=== PATIENT | male | born 1960 | race Caucasian/White ===

== ENCOUNTER 2021-02-05 15:21 | Inpatient (IN) ==
[2021-02-05] MEDS ORDERED: SODIUM CHLORIDE 0.9% 1000ML 1,000 ML IV SCH (15:45)
--- NOTE | 2021-02-05 15:52 | Emergency Department Note ---
History of Present Illness General Chief complaint: Shortness of Breath/Dyspnea Stated complaint: COVID POS 01/27/21 - MONOCLONAL ON Time Seen by Provider: 02/05/21 15:29 History of Present Illness 60-year-old male presents to the ED with a chief complaint of generalized weakness, poor appetite, unsteadiness and decreased energy. He also feels like he might be dehydrated due to to decreased p.o. intake. The patient states that he started having Covid symptoms on 27 January mainly with a fever. He was tested on the and was positive for Covid. He had monoclonal antibodies on the , 2 days ago. The patient was brought here by his daughter for evaluation. She is a physician bookkeeping assistant in pediatrics in [place]. The patient has no additional complaints at this time. Home Medications Medication Instructions Recorded Confirmed Type allopurinol 100 mg tablet 100 mg PO DAILY 02/05/21 02/05/21 History allopurinol 300 mg tablet 300 mg PO DAILY 02/05/21 02/05/21 History azithromycin 500 mg tablet 500 mg PO DAILY 5 Days #5 tab 02/05/21 Rx (Zithromax) losartan 100 mg tablet 50 mg PO DAILY 02/05/21 02/05/21 History Allergies Allergy/AdvReac Type Severity Reaction Status Date / Time No Known Allergies Allergy Verified 02/05/21 16:34 Past Med/Surg History Social History Smoking Status: Never smoker Feels Safe at Home: Yes Review of Systems A total of 10 systems reviewed and were otherwise negative Physical Exam Vital Signs Vital Signs - 24 hr 02/05/21 15:23 02/05/21 16:01 02/05/21 16:12 Temperature 35.7 C L Temperature Source Temporal Artery Scan Pulse Rate 80 75 Pulse Rate [Left Finger] Pulse Rate from SpO2 Sensor 74 Pulse Rhythm [Left Finger] Pulse Strength [Left Finger] Respiratory Rate 24 38 H Respiratory Effort / Characteristics Non-Labored Spontaneous Respiratory Depth Normal Respiratory Pattern Regular Regular Blood Pressure 129/83 Blood Pressure [Right Radial Artery] Blood Pressure Mean 98 Blood Pressure Mean [Right Radial Artery] Blood Pressure Position [Right Radial Artery] Pulse Oximetry 91 92 Oxygen Delivery Method Room Air Room Air Sepsis Recent Fever Within 48 Hours Yes Sepsis New/Unexplained Change in Mental Status No Sepsis Action Taken by Nursing No Action Required Pulse Oximetry Post Tiitration 02/05/21 16:20 02/05/21 16:30 02/05/21 16:56 Temperature Temperature Source Pulse Rate 76 68 Pulse Rate [Left Finger] 68 Pulse Rate from SpO2 Sensor 77 69 Pulse Rhythm [Left Finger] Regular Pulse Strength [Left Finger] Normal Respiratory Rate 36 H 31 H 14 Respiratory Effort / Characteristics Non-Labored Respiratory Depth Normal Respiratory Pattern Regular Blood Pressure 134/93 Blood Pressure [Right Radial Artery] 134/93 Blood Pressure Mean 106 Blood Pressure Mean [Right Radial Artery] 106 Blood Pressure Position [Right Radial Artery] Lying Pulse Oximetry 93 95 94 Oxygen Delivery Method Room Air Sepsis Recent Fever Within 48 Hours Sepsis New/Unexplained Change in Mental Status Sepsis Action Taken by Nursing Pulse Oximetry Post Tiitration 94 02/05/21 17:00 02/05/21 17:10 02/05/21 17:20 Temperature Temperature Source Pulse Rate 67 68 67 Pulse Rate [Left Finger] Pulse Rate from SpO2 Sensor 68 67 Pulse Rhythm [Left Finger] Pulse Strength [Left Finger] Respiratory Rate 27 H 32 H 28 H Respiratory Effort / Characteristics Respiratory Depth Respiratory Pattern Blood Pressure 157/95 H Blood Pressure [Right Radial Artery] Blood Pressure Mean 115 Blood Pressure Mean [Right Radial Artery] Blood Pressure Position [Right Radial Artery] Pulse Oximetry 95 94 Oxygen Delivery Method Sepsis Recent Fever Within 48 Hours Sepsis New/Unexplained Change in Mental Status Sepsis Action Taken by Nursing Pulse Oximetry Post Tiitration 02/05/21 17:30 02/05/21 17:40 02/05/21 17:50 Temperature Temperature Source Pulse Rate 65 69 67 Pulse Rate [Left Finger] Pulse Rate from SpO2 Sensor 66 69 67 Pulse Rhythm [Left Finger] Pulse Strength [Left Finger] Respiratory Rate 33 H 34 H 39 H Respiratory Effort / Characteristics Respiratory Depth Respiratory Pattern Blood Pressure 147/86 H Blood Pressure [Right Radial Artery] Blood Pressure Mean 106 Blood Pressure Mean [Right Radial Artery] Blood Pressure Position [Right Radial Artery] Pulse Oximetry 95 93 94 Oxygen Delivery Method Sepsis Recent Fever Within 48 Hours Sepsis New/Unexplained Change in Mental Status Sepsis Action Taken by Nursing Pulse Oximetry Post Tiitration 02/05/21 18:00 Temperature Temperature Source Pulse Rate 67 Pulse Rate [Left Finger] Pulse Rate from SpO2 Sensor 67 Pulse Rhythm [Left Finger] Pulse Strength [Left Finger] Respiratory Rate 35 H Respiratory Effort / Characteristics Respiratory Depth Respiratory Pattern Blood Pressure 130/86 Blood Pressure [Right Radial Artery] Blood Pressure Mean 100 Blood Pressure Mean [Right Radial Artery] Blood Pressure Position [Right Radial Artery] Pulse Oximetry 95 Oxygen Delivery Method Sepsis Recent Fever Within 48 Hours Sepsis New/Unexplained Change in Mental Status Sepsis Action Taken by Nursing Pulse Oximetry Post Tiitration CONSTITUTIONAL/VITAL SIGNS: Reviewed / noted above. GENERAL: Non-toxic in appearance. Generalized weakness. INTEGUMENTARY: Warm, dry, and [place]. HEAD: Normocephalic. EYES: without scleral icterus or trauma. ENT/OROPHARYNX: clear and moist. LYMPHADENOPATHY/NECK: Is supple without lymphadenopathy or meningismus. RESPIRATORY: Clear to auscultation bilaterally. Minimal increased work of breathing. CARDIOVASCULAR: Regular rate and rhythm. GI/ABDOMEN: Soft and nontender. No organomegaly or pulsatile mass. EXTREMITIES: Warm and well perfused. BACK: No CVA tenderness. NEUROLOGICAL: Intact without focal deficits. PSYCHIATRIC: normal affect. MUSCULOSKELETAL: Normally developed with good muscle tone. The patient did ambulate about the room and his pulse ox did not drop below 90%. TRIAGE NURSING DOCUMENTATION REVIEWED. Course Administered Medications Discontinued Medications Sodium Chloride (Nss 1000ml) 1,000 mls @ 999 mls/hr IV .Q1H1M MERRY Stop: 02/05/21 16:45 Last Infusion: 02/05/21 18:29 Dose: 0 mls/hr Documented by: [id number] Admin: 02/05/21 16:23 Dose: 999 mls/hr Documented by: [id number] Medical Decision Making Differential Diagnosis The differential was considered includes acute myocardial infarction, acute coronary syndrome, myocarditis, pericarditis, pericardial effusions /tamponad, esophageal perforation, pulmonary embolism, pneumonia, pneumothorax, cardiomyopathy, congestive heart, anemia , COPD/asthma exacerbation. Medical Records Attestation: I reviewed the patient's medical records. Home Medications Current Medication List: was personally reviewed by me Laboratory Data Attestation: I reviewed the patient's lab results. Result diagrams: 02/05/21 16:13 02/05/21 16:13 Lab Results 02/05/21 02/05/21 02/05/21 Range/Units 16:13 16:13 16:13 WBC 10.15 (4.8-10.8) K/uL RBC 6.25 H (4.7-6.1) M/uL Hgb 18.2 H (14.0-18.0) g/dL Hct 50.3 (42-52) % MCV 80.5 (80-100) fL MCH 29.1 (25-34) pg MCHC 36.2 H (32-36) g/dL RDW Std Deviation 38.2 (36.4-46.3) fL RDW Coeff of Ranulfo 12.8 (11.5-14.5) % Plt Count 229 (130-400) K/uL MPV 10.5 H (7.4-10.4) fL Immature Gran % (Auto) 0.3 % Neut % (Auto) 80.4 % Lymph % (Auto) 9.8 % [place] % (Auto) 9.3 % Eos % (Auto) 0.0 % Baso % (Auto) 0.2 % Neut # (Auto) 8.17 H (1.4-6.5) K/uL Lymph # (Auto) 0.99 L (1.2-3.4) K/uL [place] # (Auto) 0.94 H (0.11-0.59) K/uL Eos # (Auto) 0.00 (0-0.5) K/uL Baso # (Auto) 0.02 (0-0.2) K/uL Immature Gran # (Auto) 0.03 H (0.00-0.02) K/uL PT 9.9 (9.0-12.0) Seconds INR 1.0 (0.9-1.1) APTT 37.6 H (21.0-31.0) Seconds PTT Ratio 1.4 D-Dimer 470 (0-500) ug/L FEU Sodium 137 (136-145) mmol/L Potassium 3.3 L (3.5-5.1) mmol/L Chloride 103 (98-107) mmol/L Carbon Dioxide 22 (21-32) mmol/L Anion Gap 12.0 H (3-11) BUN 20 H (7-18) mg/dl Creatinine 0.96 (0.6-1.4) mg/dl Est Cr Clr Drug Dosing Not Reportable Est GFR ( Amer) 99.9 ml/min Est GFR (Non-Af Amer) 86.2 ml/min BUN/Creatinine Ratio 20.9 H (10-20) Glucose 111 H (70-99) mg/dl Calcium 9.5 (8.5-10.1) mg/dl Total Bilirubin 0.4 (0.2-1) mg/dl AST 58 H (15-37) U/L ALT 42 (12-78) Alkaline Phosphatase 61 (45-117) U/L Troponin I < 0.015 (0-0.045) ng/ml NT-Pro-B Natriuret Pep 56 (0-900) pg/ml Total Protein 7.8 (6.4-8.2) gm/dl Albumin 2.8 L (3.4-5.0) gm/dl Globulin 5.0 H (2.5-4.0) gm/dl Albumin/Globulin Ratio 0.6 L (0.9-2) Imaging Data Radiologist's Impression: Chest X-Ray 02/05/21 15:45 XR chest 1V portable HISTORY: 60 years-old Male Dyspnea acute shortness of breath COMPARISON: None TECHNIQUE: Portable AP view of the chest FINDINGS: Cardiac silhouette is enlarged. Interstitial coarsening with ill-defined lower lung zone predominant airspace opacities. No pneumothorax or pleural effusion. Bones appear grossly intact. IMPRESSION: Mid to lower lung zone predominant opacities are suggestive of multifocal viral pneumonia. ACT 112: Negative or not required by law. The above report was generated using voice recognition software. It may contain grammatical, syntax or spelling errors. Electronically signed by: Lauri Bolanos M.D. 02/05/2021 3:56 PM ECG Data Attestation: I personally reviewed and interpreted this ECG as follows: Additional Comments: Twelve-lead EKG: Per my interpretation shows a normal sinus rhythm at a rate of 74. No ST elevation. No PVCs. Normal QTC. MDM Narrative Patient presents to the ED with the above history with concerns about dehydration as well as generalized weakness, decreased energy and poor appetite. His vital signs here are stable. Twelve-lead EKG shows a normal sinus rhythm. Troponin was negative. BNP was normal. D-dimer is negative. Chest x-ray reveals bilateral infiltrates suggestive of a bilateral pneumonia. The patient's vital signs here remained good. His oxygen saturations remained in the mid 90s during the majority of his stay. He was told the results. He will be discharged on Zithromax as his symptoms have been going on for about 10 days and have slightly worsened recently. Impression & Plan Bilateral interstitial pneumonia Discharge Plan Visit Data Chief Complaint: Shortness of Breath/Dyspnea Stated Complaint: COVID POS 01/27/21 - MONOCLONAL ON ED Provider: Harsh Stanton Discharge Problem: Bilateral interstitial pneumonia Patient Disposition: Home - Self-Care Discharge Instructions [place]/Other Patient Handouts: COVID-19 Home Care Activity Restrictions/Additional Instructions: Your blood test results today show a negative D-dimer, negative cardiac enzymes, normal CBC and a normal EKG. Chest x-ray did show findings suggesting a bilateral pneumonia that is likely related to Covid. Zithromax as prescribed in case you have a superimposed bacterial infection. Use boost or Ensure if your appetite is poor to supplement your diet while not feeling well. This should give you some energy. Maintain hydration. Use Tylenol Motrin as needed for any body aches or fevers. Return to the emergency department for worsening or new symptoms or any concerns. You have been examined and treated today on an emergency basis only. This is not a substitute for, or an effort to provide, complete comprehensive medical care. It is impossible to recognize and treat all injuries or illnesses in a single emergency department visit. It is therefore important that you follow up closely with your doctor. Call as soon as possible for an appointment. Forms Stand Alone Forms: My [facility], Virtual Emergency Department, Important Visit Information Prescriptions Prescriptions: New azithromycin [Zithromax] 500 mg tablet 500 mg PO DAILY 5 Days Qty: 5 RF: 0 No Action allopurinol 100 mg Tablet 100 mg PO DAILY RF: 0 allopurinol 300 mg Tablet 300 mg PO DAILY RF: 0 losartan 100 mg Tablet 50 mg PO DAILY RF: 0 Referrals Referrals: PCP,NO [Physician] -
--- NOTE | 2021-02-05 15:57 | XRay Report ---
XR chest 1V portable HISTORY: 60 years-old Male Dyspnea acute shortness of breath COMPARISON: None TECHNIQUE: Portable AP view of the chest FINDINGS: Cardiac silhouette is enlarged. Interstitial coarsening with ill-defined lower lung zone predominant airspace opacities. No pneumothorax or pleural effusion. Bones appear grossly intact. IMPRESSION: Mid to lower lung zone predominant opacities are suggestive of multifocal viral pneumonia . ACT 112: Negative or not required by law. The above report was generated using voice recognition software. It may contain grammatical, syntax o r spelling errors. Electronically signed by: Lauri Bolanos M.D. 02/05/2021 3:56 PM
[2021-02-05 16:22] LABS: Hematocrit (blood only) 50.3 % (42-52); Hemoglobin 18.2 g/dL (14.0-18.0); Mean Corpuscular Hemoglobin 29.1 pg (25-34); Mean Corpuscular Hgb Conc 36.2 g/dL (32-36); Mean Corpuscular Volume 80.5 fL (80-100); Mean Platelet Volume 10.5 fL (7.4-10.4); Platelet Count 229 K/uL (130-400); RDW Coefficient of Variation 12.8 % (11.5-14.5); RDW Standard Deviation 38.2 fL (36.4-46.3); Red Blood Count 6.25 M/uL (4.7-6.1); White Blood Count 10.15 K/uL (4.8-10.8)
[2021-02-05 16:35] LABS: D Dimer 470 ug/L FEU (0-500); Partial Thromboplastin Ratio 1.4; Partial Thromboplastin Time 37.6 Seconds (21.0-31.0); Prothrombin Time 9.9 Seconds (9.0-12.0)
[2021-02-05 16:41] LABS: Alanine Aminotransferase 42 (12-78); Albumin Level 2.8 gm/dl (3.4-5.0); Aspartate Aminotransferase 58 U/L (15-37); BUN Creatinine Ratio 20.9 (10-20); Blood Urea Nitrogen 20 mg/dl (7-18); Calcium 9.5 mg/dl (8.5-10.1); Carbon Dioxide 22 mmol/L (21-32); Chloride 103 mmol/L (98-107); Est GFR (African American) 99.9 ml/min; Est GFR (Non-African American) 86.2 ml/min; Glucose 111 mg/dl (70-99); Potassium 3.3 mmol/L (3.5-5.1); Sodium 137 mmol/L (136-145)
[2021-02-05 16:46] LABS: Albumin Globulin Ratio 0.6 (0.9-2); Alkaline Phosphatase 61 U/L (45-117); Bilirubin,Total 0.4 mg/dl (0.2-1); NT Pro B Type Natriuretic Pept 56 pg/ml (0-900); Total Protein 7.8 gm/dl (6.4-8.2); Troponin I < 0.015 ng/ml (0-0.045)
[2021-02-05 16:50] LABS: Basophils # (auto) 0.02 K/uL (0-0.2); Basophils % (auto) 0.2 %; Immature Granulocytes # (auto) 0.03 K/uL (0.00-0.02); Immature Granulocytes % (auto) 0.3 %; Lymphocytes # (auto) 0.99 K/uL (1.2-3.4); Lymphocytes % (auto) 9.8 %; Monocytes # (auto) 0.94 K/uL (0.11-0.59); Monocytes % (auto) 9.3 %; Neutrophils # (auto) 8.17 K/uL (1.4-6.5); Neutrophils % (auto) 80.4 %
[2021-02-05] MEDS ORDERED: dexAMETHasone**PF** 10 MG/ML VIAL IV ONE (19:48)
[2021-02-05] MEDS ORDERED: REMDESIVIR 200 MG in SODIUM CHLORIDE 0.9% 210 ML IV STA (20:40)
--- NOTE | 2021-02-05 20:41 | History & Physical Report ---
Date of Service February 05, 2021 Assessment & Plan (1) Pneumonia due to COVID-19 virus: Plan: COVID-19 pneumonia with hypoxia- Give total dexamethasone 10 mg IV in the ED, adding 4 mg to the 6 already given Dexamethasone 6 mg IV every morning Remdesivir IV per protocol Azithromycin 500 mg IV daily Duonebs every 4 hours while awake and every 2 hours Guaifenesin extended release 12 mg p.o. twice daily Vitamin D 1000 international units p.o. daily Zinc sulfate turn 20 mg p.o. daily Lovenox subcu Nasal cannula oxygen, titrate to keep pulse ox 94-95% (2) Hypoxia: Plan: See above (3) Hypertension: Plan: Continue losartan with hold parameters (4) Gout: Plan: Continue allopurinol (5) Hypokalemia: Plan: Potassium 3.3 upon admission Give Klor-Con 40 mEq p.o. x1 Repeat laboratories in a.m. History of Present Illness Chief Complaint: The patient presents to the emergency department with worsening generalized fatigue, shortness of breath, generalized myalgias, dyspnea on exertion, decreased oral intake and unsteadiness when trying to ambulate Primary Care Provider: Darryl Riley The patient is a 60-year-old male with a past medical history including gout and hypertension. He notes the development of the above symptoms on January 27. He had a positive COVID-19 test on January 30, was supposed to get a monoclonal antibody treatment on January 31, however, the nurse called in sick that day, and actually received monoclonal antibody treatment on February 03. He has continued to have progression of symptoms as noted above. Significant laboratories: WBC 10.15, hemoglobin 18.2, hematocrit 50.3, potassium 3.3,, glucose 111, AST 58, albumin 2.8. Patient was COVID-19 positive in ED this evening Pulse ox on room air with ambulation is 87% Chest x-ray with bilateral multifocal pneumonia at the bases Allergies Allergy/AdvReac Type Severity Reaction Status Date / Time No Known Allergies Allergy Verified 02/05/21 16:34 Home Medications Medication Instructions Recorded Confirmed Type allopurinol 100 mg tablet 100 mg PO DAILY 02/05/21 02/05/21 History allopurinol 300 mg tablet 300 mg PO DAILY 02/05/21 02/05/21 History azithromycin 500 mg tablet 500 mg PO DAILY 5 Days #5 tab 02/05/21 Rx (Zithromax) losartan 100 mg tablet 50 mg PO DAILY 02/05/21 02/05/21 History Past Med/Surg History Medical History (Updated 02/05/21 @ 21:36 by Hussain Medellin MD) Gout Hypertension Social History Smoking Status: Never smoker Feels Safe at Home: Yes Review of Systems Review of Systems: The patient denies chest pain, palpitations, lower extremity swelling, sore throat, fevers, chills, sweats, nausea, vomiting, diarrhea , constipation, abdominal pain, pelvic pain, blood in urine or stool, dysuria, urinary frequency or urgency, headache, memory loss, loss of consciousness, rash, abnormal bruising or bleeding, focal weakness, numbness or tingling in arms or legs, back or neck pain, or night sweats. The review of systems is otherwise negative other than for that already noted above, and at least 10 systems have been reviewed. Physical Exam Physical Exam: The patient is awake, alert and oriented 3, looks very fatigued, normocephalic and atraumatic, lying in bed and in no acute distress. HEENT--PERRL, EOMI, mucous membranes and oropharynx dry. Neck--supple. No JVD. No bruits. Thyroid normal, trachea midline, no adenopathy. Heart--normal S1 and S2. No murmurs, rubs or gallops. Lungs--clear bilaterally, no respiratory distress, no accessory muscle use. Abdomen--normal bowel sounds and soft. Nontender. Nondistended, no hernias or masses, no organomegaly. Extremities--no cyanosis or clubbing. No edema. There are good distal pulses b/l. Dermatologic--normal skin turgor, normal color, no abnormal lymph nodes, no rash. Neurologic--cranial nerves II through XII grossly intact. Rheumatologic--normal range of motion. Psychiatric--normal affect. Results & Data Results & Data ([facility]) Vital Signs (Past 12 Hours) Vital Signs Temp Pulse Pulse Resp BP BP Pulse Ox 02/05/21 20:00 65 14 136/94 94 02/05/21 19:49 82 22 87 L 02/05/21 18:52 66 20 130/89 96 02/05/21 18:00 67 35 H 130/86 95 02/05/21 17:50 67 39 H 94 02/05/21 17:40 69 34 H 93 02/05/21 17:30 65 33 H 147/86 H 95 02/05/21 17:20 67 28 H 94 02/05/21 17:10 68 32 H 95 02/05/21 17:00 67 27 H 157/95 H 02/05/21 16:56 68 14 134/93 94 02/05/21 16:30 68 31 H 134/93 95 02/05/21 16:20 76 36 H 93 02/05/21 16:12 75 38 H 92 02/05/21 15:23 35.7 C L 80 24 129/83 91 Laboratory Results Laboratory Results WBC 10.15 K/uL (4.8-10.8) 02/05/21 16:13 RBC 6.25 M/uL (4.7-6.1) H 02/05/21 16:13 Hgb 18.2 g/dL (14.0-18.0) H 02/05/21 16:13 Hct 50.3 % (42-52) 02/05/21 16:13 MCV 80.5 fL (80-100) 02/05/21 16:13 MCH 29.1 pg (25-34) 02/05/21 16:13 MCHC 36.2 g/dL (32-36) H 02/05/21 16:13 RDW Std Deviation 38.2 fL (36.4-46.3) 02/05/21 16:13 RDW Coeff of Ranulfo 12.8 % (11.5-14.5) 02/05/21 16:13 Plt Count 229 K/uL (130-400) 02/05/21 16:13 MPV 10.5 fL (7.4-10.4) H 02/05/21 16:13 Immature Gran % (Auto) 0.3 % 02/05/21 16:13 Neut % (Auto) 80.4 % 02/05/21 16:13 Lymph % (Auto) 9.8 % 02/05/21 16:13 [place] % (Auto) 9.3 % 02/05/21 16:13 Eos % (Auto) 0.0 % 02/05/21 16:13 Baso % (Auto) 0.2 % 02/05/21 16:13 Neut # (Auto) 8.17 K/uL (1.4-6.5) H 02/05/21 16:13 Lymph # (Auto) 0.99 K/uL (1.2-3.4) L 02/05/21 16:13 [place] # (Auto) 0.94 K/uL (0.11-0.59) H 02/05/21 16:13 Eos # (Auto) 0.00 K/uL (0-0.5) 02/05/21 16:13 Baso # (Auto) 0.02 K/uL (0-0.2) 02/05/21 16:13 Immature Gran # (Auto) 0.03 K/uL (0.00-0.02) H 02/05/21 16:13 PT 9.9 Seconds (9.0-12.0) 02/05/21 16:13 INR 1.0 (0.9-1.1) 02/05/21 16:13 APTT 37.6 Seconds (21.0-31.0) H 02/05/21 16:13 PTT Ratio 1.4 02/05/21 16:13 D-Dimer 470 ug/L FEU (0-500) 02/05/21 16:13 Sodium 137 mmol/L (136-145) 02/05/21 16:13 Potassium 3.3 mmol/L (3.5-5.1) L 02/05/21 16:13 Chloride 103 mmol/L (98-107) 02/05/21 16:13 Carbon Dioxide 22 mmol/L (21-32) 02/05/21 16:13 Anion Gap 12.0 (3-11) H 02/05/21 16:13 BUN 20 mg/dl (7-18) H 02/05/21 16:13 Creatinine 0.96 mg/dl (0.6-1.4) 02/05/21 16:13 Est Cr Clr Drug Dosing Not Reportable 02/05/21 16:13 Est GFR ( Amer) 99.9 ml/min 02/05/21 16:13 Est GFR (Non-Af Amer) 86.2 ml/min 02/05/21 16:13 BUN/Creatinine Ratio 20.9 (10-20) H 02/05/21 16:13 Glucose 111 mg/dl (70-99) H 02/05/21 16:13 Calcium 9.5 mg/dl (8.5-10.1) 02/05/21 16:13 Total Bilirubin 0.4 mg/dl (0.2-1) 02/05/21 16:13 AST 58 U/L (15-37) H 02/05/21 16:13 ALT 42 (12-78) 02/05/21 16:13 Alkaline Phosphatase 61 U/L (45-117) 02/05/21 16:13 Troponin I < 0.015 ng/ml (0-0.045) 02/05/21 16:13 NT-Pro-B Natriuret Pep 56 pg/ml (0-900) 02/05/21 16:13 Total Protein 7.8 gm/dl (6.4-8.2) 02/05/21 16:13 Albumin 2.8 gm/dl (3.4-5.0) L 02/05/21 16:13 Globulin 5.0 gm/dl (2.5-4.0) H 02/05/21 16:13 Albumin/Globulin Ratio 0.6 (0.9-2) L 02/05/21 16:13 SARS-CoV-2, RNA, NAAT POSITIVE (NEGATIVE) A* 02/05/21 20:01 Impressions Chest X-Ray 02/05/21 15:45 XR chest 1V portable HISTORY: 60 years-old Male Dyspnea acute shortness of breath COMPARISON: None TECHNIQUE: Portable AP view of the chest FINDINGS: Cardiac silhouette is enlarged. Interstitial coarsening with ill-defined lower lung zone predominant airspace opacities. No pneumothorax or pleural effusion. Bones appear grossly intact. IMPRESSION: Mid to lower lung zone predominant opacities are suggestive of multifocal viral pneumonia. ACT 112: Negative or not required by law. The above report was generated using voice recognition software. It may contain grammatical, syntax or spelling errors. Electronically signed by: Lauri Bolanos M.D. 02/05/2021 3:56 PM Code Status & VTE Plan Code Status Full code VTE Prophylaxis Plan VTE Prophylaxis will be ordered: Yes PG Care Time/CCT Total # of Minutes Spent Total Time Spent with Patient: Total time spent is greater than 50% in coordination of care (as documented) at patient's floor/unit and/or counseling patient: Coding Level of Care Code 34305 Initial Inpt Care Lvl 3 Diagnoses Hypokalemia E87.6 Pneumonia due to COVID-19 virus U07.1; J12.82 Hypoxia R09.02 Hypertension I10 Gout M10.9
[2021-02-05] MEDS ORDERED: POTASSIUM CHLORIDE CRTAB 20 MEQ TABCR PO STA (21:33)
[2021-02-05] MEDS ORDERED: ENOXAPARIN INJ 40 MG/0.4 ML SYR SQ STA (21:44)
[2021-02-05] MEDS ORDERED: ONDANSETRON INJ 2 MG/ML 2 ML VIAL IV PRN (22:20)
[2021-02-06] MEDS: guaiFENesin 600 MG TABCR PO SCH ×3 (01:15→21:14)
[2021-02-06] MEDS: AZITHROMYCIN 500 MG in DEXTROSE 5% 250 ML IV SCH (06:24)
[2021-02-06 06:51] LABS: Basophils # (auto) 0.02 K/uL (0-0.2); Basophils % (auto) 0.4 %; Hematocrit (blood only) 49.4 % (42-52); Hemoglobin 17.3 g/dL (14.0-18.0); Immature Granulocytes # (auto) 0.02 K/uL (0.00-0.02); Immature Granulocytes % (auto) 0.4 %; Lymphocytes # (auto) 0.64 K/uL (1.2-3.4); Lymphocytes % (auto) 12.5 %; Mean Corpuscular Hemoglobin 28.5 pg (25-34); Mean Corpuscular Volume 81.3 fL (80-100); Mean Platelet Volume 11.3 fL (7.4-10.4); Monocytes # (auto) 0.24 K/uL (0.11-0.59); Monocytes % (auto) 4.7 %; Neutrophils # (auto) 4.22 K/uL (1.4-6.5); Platelet Count 248 K/uL (130-400); RDW Standard Deviation 38.8 fL (36.4-46.3); Red Blood Count 6.08 M/uL (4.7-6.1); White Blood Count 5.14 K/uL (4.8-10.8)
[2021-02-06 07:25] LABS: Albumin Globulin Ratio 0.5 (0.9-2); Albumin Level 2.5 gm/dl (3.4-5.0); BUN Creatinine Ratio 19.1 (10-20); Bilirubin,Total 0.6 mg/dl (0.2-1); Calcium 9.7 mg/dl (8.5-10.1); Creatinine Clr Calc Pharmacy 106.3 ml/min; Est GFR (African American) 108.5 ml/min; Est GFR (Non-African American) 93.6 ml/min; Globulin 4.8 gm/dl (2.5-4.0); Potassium 4.3 mmol/L (3.5-5.1); Total Protein 7.3 gm/dl (6.4-8.2)
[2021-02-06] MEDS: allopurinoL 100 MG TAB PO SCH (07:53)
[2021-02-06] MEDS: ZINC SULFATE 220 MG CAPSULE PO SCH (07:53)
[2021-02-06] MEDS: dexAMETHasone 6 MG in SYRINGE 0 ML IV SCH (07:53)
[2021-02-06] MEDS: LOSARTAN POTASSIUM 50 MG TAB PO SCH (07:53)
[2021-02-06] MEDS: allopurinoL 300 MG TAB PO SCH (07:54)
[2021-02-06] MEDS: CHOLECALCIFEROL 1,000 UNITS 25 MCG TAB PO SCH (07:54)
[2021-02-06] MEDS: ALBUT/IPRATROP 3MG/0.5MG NEB 3 ML VIAL NEB SCH ×2 (08:09→10:48)
[2021-02-06 09:01] LABS: Appearance Urine Clear (Clear); Bacteria Urine Automated Negative (Negative); Bilirubin Urine Negative (Negative); Blood Urine Trace (Negative); Color Urine Yellow; Epithelial Cell Urine Auto >30 /lpf (0-5); Glucose Urine UA Negative (Negative); Ketones Urine Negative (Negative); Leukocyte Esterase Urine Negative (Negative); Nitrite Urine Negative (Negative); Protein Urine 1+ (Negative); Specific Gravity Urine 1.029 (1.000-1.030); Urobilinogen Urine Negative (Negative)
--- NOTE | 2021-02-06 14:00 | Hospitalist Progress Note ---
Date of Service February 06, 2021 Assessment & Plan (1) Pneumonia due to COVID-19 virus: Plan: - Symptom onset January 27 with positive test on the ; received monoclonal antibodies on 03 February -- At this time at the peak phase of the process - Given total Dexamethasone 10 mg IV in ED; Continue Dexamethasone 6 mg IV daily - Continue Remdesivir per protocol - to complete on 09 February - Zithromax 500 mg daily - Duanantbs MERRY; Mucinex BID; Zinc daily - Lovenox - DVT prophylaxis - Mild crackles at bases - consider Lasix x 1 dose and monitor tolerance - goal to keep on the dry side - Continue supplemental O2 - wean as tolerated - will monitor for need for O2 at home (2) Hypoxia: Plan: - See above - related to COVID (3) Hypertension: Plan: - Continue losartan with hold parameters (4) Gout: Plan: - Continue allopurinol (5) Hypokalemia: Plan: - Potassium 3.3 upon admission - currently resolved and will monitor routinely Plan: Continue Remdesivir treatment and wean O2 as tolerated; Will continue to monitor for needs for O2 at home. Admission and Anticipated Discharge Date Admission Date: February 05, 2021 Subjective He reports feeling a bit better today but not at baseline. States he was able to get up to the bathroom but got pretty fatigued with minimal activity. Currently on 1-2 L NC with saturations in the 90s. Does have a productive cough. Minimal appetite but trying to snack periodically. He has remained sinus on monitor. Verbalizes no new complaints. Review of Systems Review of Systems: All systems reviewed & are unremarkable except as noted in Subjective Physical Exam Physical Exam: PHYSICAL EXAM General Appearance: WDWN in NAD who is ill appearing but non-toxic who is A&O x 3 HEENT: Head is normocephalic/atraumatic; Hearing grossly intact; Mucous membranes moist Neck: Supple; Trachea midline; Neg JVD Heart: RRR with no M/G/R Lungs: CTA in all lung [place] predominantly but diminished; fine crackles in R base that improves some with further deep inspiration; Respirations unlabored; Neg accessory muscle use Abdomen: Soft, non-tender, non-distended; Positive BS x 4 quadrants Extremities: Neg cyanosis or edema Neurological: Speech clear; Gross motor/sensory function intact; Neg focal neurologic deficits Psychiatric: Appropriate mood/affect Skin: Normal Color; Warm/Dry Results & Data Results & Data ([facility]) Vital Signs (Past 12 Hours) Vital Signs Temp Pulse Pulse Resp BP Pulse Ox 02/06/21 11:37 36.5 C 73 16 142/86 H 91 02/06/21 10:49 85 18 91 02/06/21 08:17 36.5 C 65 19 154/91 H 94 02/06/21 08:11 76 18 88 L 02/06/21 07:43 57 L 02/06/21 03:56 36.5 C 62 24 125/78 92 PG Care Time/CCT Total # of Minutes Spent Total Time Spent with Patient: Total time spent is greater than 50% in coordination of care (as documented) at patient's floor/unit and/or counseling patient: Coding Level of Care Code 11024 Subseq Hosp Care Lvl 3 Diagnoses Pneumonia due to COVID-19 virus U07.1; J12.82 Hypoxia R09.02 Hypertension I10 Gout M10.9 Hypokalemia E87.6
[2021-02-06] MEDS ORDERED: ALBUT/IPRATROP 3MG/0.5MG NEB 3 ML VIAL NEB PRN (14:33)
[2021-02-06] MEDS ORDERED: FUROSEMIDE INJ 20 MG/2 ML VIAL IV ONE (16:09)
[2021-02-06] MEDS: REMDESIVIR 100 MG in SODIUM CHLORIDE 0.9% 230 ML IV SCH (21:09)
[2021-02-06] MEDS: ENOXAPARIN INJ 40 MG/0.4 ML SYR SQ SCH (21:13)
[2021-02-06] MEDS: SODIUM CHLORIDE 0.9% 10ML FLUSH IV SCH (22:27)
[2021-02-07] MEDS: AZITHROMYCIN 500 MG in DEXTROSE 5% 250 ML IV SCH (06:03)
[2021-02-07 07:10] LABS: Basophils # (auto) 0.01 K/uL (0-0.2); Basophils % (auto) 0.1 %; Hemoglobin 16.6 g/dL (14.0-18.0); Immature Granulocytes # (auto) 0.05 K/uL (0.00-0.02); Immature Granulocytes % (auto) 0.4 %; Lymphocytes # (auto) 0.92 K/uL (1.2-3.4); Lymphocytes % (auto) 7.6 %; Mean Corpuscular Hemoglobin 28.7 pg (25-34); Mean Corpuscular Hgb Conc 35.3 g/dL (32-36); Mean Corpuscular Volume 81.2 fL (80-100); Mean Platelet Volume 10.7 fL (7.4-10.4); Monocytes # (auto) 1.11 K/uL (0.11-0.59); Monocytes % (auto) 9.2 %; Neutrophils # (auto) 9.96 K/uL (1.4-6.5); Neutrophils % (auto) 82.7 %; Platelet Count 354 K/uL (130-400); RDW Coefficient of Variation 13.1 % (11.5-14.5); RDW Standard Deviation 38.7 fL (36.4-46.3); Red Blood Count 5.79 M/uL (4.7-6.1); White Blood Count 12.05 K/uL (4.8-10.8)
[2021-02-07 07:50] LABS: Albumin Globulin Ratio 0.5 (0.9-2); Albumin Level 2.4 gm/dl (3.4-5.0); BUN Creatinine Ratio 24.6 (10-20); Bilirubin,Total 0.5 mg/dl (0.2-1); Calcium 9.6 mg/dl (8.5-10.1); Creatinine Clr Calc Pharmacy 99.2 ml/min; Globulin 4.7 gm/dl (2.5-4.0); Potassium 3.2 mmol/L (3.5-5.1); Total Protein 7.1 gm/dl (6.4-8.2)
[2021-02-07] MEDS ORDERED: FUROSEMIDE INJ 20 MG/2 ML VIAL IV ONE (08:00)
[2021-02-07] MEDS ORDERED: POTASSIUM CHLORIDE CRTAB 20 MEQ TABCR PO STA (08:00)
[2021-02-07] MEDS: guaiFENesin 600 MG TABCR PO SCH ×2 (08:06→20:08)
[2021-02-07] MEDS: dexAMETHasone 6 MG in SYRINGE 0 ML IV SCH (08:06)
[2021-02-07] MEDS: LOSARTAN POTASSIUM 50 MG TAB PO SCH (08:07)
[2021-02-07] MEDS: ZINC SULFATE 220 MG CAPSULE PO SCH (08:07)
[2021-02-07] MEDS: allopurinoL 300 MG TAB PO SCH (08:07)
[2021-02-07] MEDS: CHOLECALCIFEROL 1,000 UNITS 25 MCG TAB PO SCH (08:07)
[2021-02-07] MEDS: allopurinoL 100 MG TAB PO SCH (08:07)
--- NOTE | 2021-02-07 12:53 | XRay Report ---
XR chest 1V portable CLINICAL HISTORY: Hypoxia; evaluate for further PNA development?. COMPARISON STUDY: 02/05/2021 TECHNIQUE: 1 view of the chest FINDINGS: Single frontal view of the chest demonstrates the cardiomediastinal silhouette to be within normal li mits. Compared to the previous study, patchy interstitial and alveolar opacities are again seen invol ving both lower lobes which is not significantly changed. There is no evidence for pleural effusion. There is no evidence for vascular congestion. There is no acute osseous pathology. IMPRESSION: No significant interval change in bilateral interstitial and alveolar opacities. ACT 112: Negative or not required by law. Electronically signed by: Efren Campos M.D. 02/07/2021 12:52 PM
--- NOTE | 2021-02-07 13:00 | Hospitalist Progress Note ---
Date of Service February 07, 2021 Assessment & Plan (1) Pneumonia due to COVID-19 virus: Plan: - Symptom onset January 27 with positive test on the ; received monoclonal antibodies on 03 February -- At this time at the peak phase of COVID - still requiring 5-6 L NC - Given total Dexamethasone 10 mg IV in ED; Continue Dexamethasone 6 mg IV daily - Continue Remdesivir per protocol - to complete on 09 February - given the length of time before initiation uncertain of much benefit at this time - Zithromax 500 mg daily - Duonebs PRN; Mucinex BID; Zinc daily - Lovenox - DVT prophylaxis - Lasix x 2 doses total - goal to keep on the dry side - Repeat CXR - Continue supplemental O2 - wean as tolerated - will monitor for need for O2 at home (2) Hypoxia: Plan: - See above - related to COVID (3) Hypertension: Plan: - Continue losartan with hold parameters (4) Gout: Plan: - Continue allopurinol (5) Hypokalemia: Plan: - Monitor and replete as necessary given diuretics Plan: Still requiring 5-6 L NC so keep in-house; wean O2 as tolerated; Will continue to monitor for needs for O2 at home. Admission and Anticipated Discharge Date Admission Date: February 05, 2021 Subjective Reports feeling a bit better today. Continues to have a cough but now more dry/irritative. Reports with ambulation he starts coughing. When the coughing fits stop he feels a bit better. Requiring 5-6 L NC. Still with no appetite. Reports he has been sleeping a bit better. Review of Systems Review of Systems: All systems reviewed & are unremarkable except as noted in Subjective Physical Exam Physical Exam: PHYSICAL EXAM General Appearance: WDWN in NAD who is ill appearing but non-toxic who is A&O x 3 HEENT: Head is normocephalic/atraumatic; Hearing grossly intact; Mucous membranes moist Neck: Supple; Trachea midline; Neg JVD Heart: RRR with no M/G/R Lungs: CTA except for bases - moving more air today compared to yesterdays exam; fine crackles in R base that improves some with further deep inspiration; Respirations unlabored; Neg accessory muscle use Abdomen: Soft, non-tender, non-distended; Positive BS x 4 quadrants Extremities: Neg cyanosis or edema Neurological: Speech clear; Gross motor/sensory function intact; Neg focal neurologic deficits Psychiatric: Appropriate mood/affect Skin: Normal Color; Warm/Dry Results & Data Results & Data ([facility]) Vital Signs (Past 12 Hours) Vital Signs Temp Pulse Pulse Resp BP Pulse Ox 02/07/21 11:52 36.4 C L 65 16 117/73 92 02/07/21 07:36 60 02/07/21 07:34 36.5 C 57 L 16 133/83 94 02/07/21 03:31 36.5 C 69 20 138/88 95 PG Care Time/CCT Total # of Minutes Spent Total Time Spent with Patient: Total time spent is greater than 50% in coordination of care (as documented) at patient's floor/unit and/or counseling patient: Coding Level of Care Code 44961 Subseq Hosp Care Lvl 3 Diagnoses Pneumonia due to COVID-19 virus U07.1; J12.82 Hypoxia R09.02 Hypertension I10 Gout M10.9 Hypokalemia E87.6
[2021-02-07] MEDS: ENOXAPARIN INJ 40 MG/0.4 ML SYR SQ SCH (20:07)
[2021-02-07] MEDS: REMDESIVIR 100 MG in SODIUM CHLORIDE 0.9% 230 ML IV SCH (20:08)
[2021-02-07] MEDS: SODIUM CHLORIDE 0.9% 10ML FLUSH IV SCH (20:08)
--- NOTE | 2021-02-07 21:54 | Electrocardiogram Report ---
Test Reason : Blood Pressure : / mmHG Vent. Rate : 074 BPM Atrial Rate : 074 BPM P-R Int : 178 ms QRS Dur : 086 ms QT Int : 430 ms P-R-T Axes : 000 048 061 degrees QTc Int : 477 ms Normal sinus rhythm Normal ECG No previous ECGs available Confirmed by John Connor ([id number]) on 02/07/2021 9:54:43 PM Referred By: Confirmed By:John Connor
[2021-02-08] MEDS: AZITHROMYCIN 500 MG in DEXTROSE 5% 250 ML IV SCH (05:50)
[2021-02-08 06:39] LABS: Basophils # (auto) 0.02 K/uL (0-0.2); Basophils % (auto) 0.1 %; Hematocrit (blood only) 47.1 % (42-52); Hemoglobin 16.3 g/dL (14.0-18.0); Immature Granulocytes # (auto) 0.08 K/uL (0.00-0.02); Immature Granulocytes % (auto) 0.5 %; Lymphocytes # (auto) 1.58 K/uL (1.2-3.4); Lymphocytes % (auto) 10.7 %; Mean Corpuscular Hemoglobin 28.5 pg (25-34); Mean Corpuscular Hgb Conc 34.6 g/dL (32-36); Mean Corpuscular Volume 82.5 fL (80-100); Mean Platelet Volume 11.2 fL (7.4-10.4); Monocytes # (auto) 1.82 K/uL (0.11-0.59); Monocytes % (auto) 12.4 %; Neutrophils # (auto) 11.21 K/uL (1.4-6.5); Neutrophils % (auto) 76.3 %; Platelet Count 491 K/uL (130-400); RDW Coefficient of Variation 13.3 % (11.5-14.5); RDW Standard Deviation 39.9 fL (36.4-46.3); Red Blood Count 5.71 M/uL (4.7-6.1); White Blood Count 14.71 K/uL (4.8-10.8)
[2021-02-08 07:18] LABS: Albumin Level 2.5 gm/dl (3.4-5.0); BUN Creatinine Ratio 25.6 (10-20); Calcium 9.5 mg/dl (8.5-10.1); Est GFR (African American) 98.6 ml/min; Est GFR (Non-African American) 85.1 ml/min; Potassium 3.5 mmol/L (3.5-5.1)
[2021-02-08 07:21] LABS: Albumin Globulin Ratio 0.5 (0.9-2); Globulin 4.6 gm/dl (2.5-4.0); Total Protein 7.1 gm/dl (6.4-8.2)
[2021-02-08] MEDS ORDERED: guaiFENesin/CODEINE 100MG/10MG 5ML UDC PO PRN (07:56)
[2021-02-08] MEDS: CHOLECALCIFEROL 1,000 UNITS 25 MCG TAB PO SCH (08:39)
[2021-02-08] MEDS: LOSARTAN POTASSIUM 50 MG TAB PO SCH (08:39)
[2021-02-08] MEDS: allopurinoL 300 MG TAB PO SCH (08:40)
[2021-02-08] MEDS: ZINC SULFATE 220 MG CAPSULE PO SCH (08:40)
[2021-02-08] MEDS: allopurinoL 100 MG TAB PO SCH (08:40)
[2021-02-08] MEDS: dexAMETHasone 6 MG in SYRINGE 0 ML IV SCH (08:41)
[2021-02-08] MEDS: guaiFENesin 600 MG TABCR PO SCH ×2 (08:41→20:53)
[2021-02-08] MEDS ORDERED: FUROSEMIDE INJ 20 MG/2 ML VIAL IV ONE (15:58)
--- NOTE | 2021-02-08 17:27 | Hospitalist Progress Note ---
Date of Service February 08, 2021 Assessment & Plan (1) Pneumonia due to COVID-19 virus: Plan: - Symptom onset January 27 with positive test on the ; received monoclonal antibodies on 03 February -- At this time at the peak phase of COVID - weaned down to 2 L - Given total Dexamethasone 10 mg IV in ED; Continue Dexamethasone 6 mg IV daily - Continue Remdesivir per protocol - to complete on 09 February - given the length of time before initiation uncertain of much benefit at this time - Zithromax 500 mg daily - Duonebs PRN; Mucinex BID; Zinc daily - Lovenox - DVT prophylaxis - Lasix based on assessment - goal to keep on the dry side - Repeat CXR - no significant interval change in bilateral interstitial and alveolar opacities - Continue supplemental O2 - wean as tolerated - will monitor for need for O2 at home/perform 2-step (2) Hypoxia: Plan: - See above - related to COVID (3) Hypertension: Plan: - Continue losartan with hold parameters (4) Gout: Plan: - Continue allopurinol (5) Hypokalemia: Plan: - Monitor and replete as necessary given diuretics Plan: Clinically improving; perform 2 step prior to D/C; Possible D/C in 1-2 days Admission and Anticipated Discharge Date Admission Date: February 05, 2021 Subjective Reports feeling a bit better. Appetite is improving. Oxygen requirement is reducing. Also reports his cough is less frequent compared to yesterday and not bothersome. Verbalizes no new complaints. Review of Systems Review of Systems: All systems reviewed & are unremarkable except as noted in Subjective Physical Exam Physical Exam: PHYSICAL EXAM General Appearance: WDWN in NAD who is A&O x 3 HEENT: Head is normocephalic/atraumatic; Hearing grossly intact; Mucous membranes moist Neck: Supple; Trachea midline; Neg JVD Heart: RRR with no M/G/R Lungs: CTA except for bases - moving more air today compared to yesterdays exam; fine crackles in R base that improves some with further deep inspiration; Respirations unlabored; Neg accessory muscle use Abdomen: Soft, non-tender, non-distended; Positive BS x 4 quadrants Extremities: Neg cyanosis or edema Neurological: Speech clear; Gross motor/sensory function intact; Neg focal neurologic deficits Psychiatric: Appropriate mood/affect Skin: Normal Color; Warm/Dry Results & Data Results & Data ([facility]) Vital Signs (Past 12 Hours) Vital Signs Temp Pulse Pulse Resp BP Pulse Ox 02/08/21 15:51 36.6 C 65 19 126/76 92 02/08/21 11:00 36.4 C L 62 20 125/77 97 02/08/21 09:29 91 02/08/21 08:00 53 L PG Care Time/CCT Total # of Minutes Spent Total Time Spent with Patient: Total time spent is greater than 50% in coordination of care (as documented) at patient's floor/unit and/or counseling patient: Coding Level of Care Code 74677 Subseq Hosp Care Lvl 3 Diagnoses Pneumonia due to COVID-19 virus U07.1; J12.82 Hypoxia R09.02 Hypertension I10 Gout M10.9 Hypokalemia E87.6
[2021-02-08] MEDS: SODIUM CHLORIDE 0.9% 10ML FLUSH IV SCH (19:40)
[2021-02-08] MEDS: REMDESIVIR 100 MG in SODIUM CHLORIDE 0.9% 230 ML IV SCH (19:40)
[2021-02-08] MEDS: ENOXAPARIN INJ 40 MG/0.4 ML SYR SQ SCH (20:53)
[2021-02-09] MEDS: AZITHROMYCIN 500 MG in DEXTROSE 5% 250 ML IV SCH (06:14)
[2021-02-09] MEDS: allopurinoL 100 MG TAB PO SCH (08:24)
[2021-02-09] MEDS: allopurinoL 300 MG TAB PO SCH (08:24)
[2021-02-09] MEDS: ZINC SULFATE 220 MG CAPSULE PO SCH (08:24)
[2021-02-09] MEDS: CHOLECALCIFEROL 1,000 UNITS 25 MCG TAB PO SCH (08:24)
[2021-02-09] MEDS: LOSARTAN POTASSIUM 50 MG TAB PO SCH (08:25)
[2021-02-09] MEDS: guaiFENesin 600 MG TABCR PO SCH ×2 (08:25→20:02)
[2021-02-09] MEDS: dexAMETHasone 6 MG in SYRINGE 0 ML IV SCH (08:26)
--- NOTE | 2021-02-09 19:50 | Hospitalist Progress Note ---
Date of Service February 09, 2021 Assessment & Plan (1) Pneumonia due to COVID-19 virus: Plan: - Symptom onset January 27 with positive test on the ; received monoclonal antibodies on 03 February -- At this time at the peak phase of COVID - weaned down to RA at rest - Given total Dexamethasone 10 mg IV in ED; Continue Dexamethasone 6 mg IV daily - Continue Remdesivir per protocol - to complete on 09 February - given the length of time before initiation uncertain of much benefit at this time - Zithromax 500 mg daily - Duonebs PRN; Mucinex BID; Zinc daily - Lovenox - DVT prophylaxis - Lasix based on assessment - goal to keep on the dry side - Repeat CXR - no significant interval change in bilateral interstitial and alveolar opacities - 2 Step revealed need to 6 L on ambulation - Rx faxed but awaiting O2 -- Seems his pulse ox is better assessed on the vitals machine - will re-walk tomorrow to see how he performs (2) Hypoxia: Plan: - See above - related to COVID (3) Hypertension: Plan: - Continue losartan with hold parameters (4) Gout: Plan: - Continue allopurinol (5) Hypokalemia: Plan: - Monitor and replete as necessary given diuretics Plan: Clinically improving; await O2, possibly home tomorrow Admission and Anticipated Discharge Date Admission Date: February 05, 2021 Subjective Doing quite well today. Has been weaned to RA today however on two step he required 6 L with ambulation which got him to 89%. He states when walking he could tell his endurance was down but overall not SOB. His appetite is improving. Review of Systems Review of Systems: All systems reviewed & are unremarkable except as noted in Subjective Physical Exam Physical Exam: PHYSICAL EXAM General Appearance: WDWN in NAD who is A&O x 3 HEENT: Head is normocephalic/atraumatic; Hearing grossly intact; Mucous membranes moist Neck: Supple; Trachea midline; Neg JVD Heart: RRR with no M/G/R Lungs: CTA except for bases - moving more air today compared to yesterdays exam; fine crackles in R base; Respirations unlabored; Neg accessory muscle use Abdomen: Soft, non-tender, non-distended; Positive BS x 4 quadrants Extremities: Neg cyanosis or edema Neurological: Speech clear; Gross motor/sensory function intact; Neg focal neurologic deficits Psychiatric: Appropriate mood/affect Skin: Normal Color; Warm/Dry Results & Data Results & Data ([facility]) Vital Signs (Past 12 Hours) Vital Signs Temp Pulse Pulse Pulse Pulse Pulse Pulse 02/09/21 18:00 36.9 C 02/09/21 15:35 80 02/09/21 15:00 36.5 C 02/09/21 14:58 98 H 101 H 96 H 100 H 99 H 02/09/21 13:07 02/09/21 11:58 36.5 C 02/09/21 08:00 58 L Pulse Pulse Pulse Resp Resp Resp Resp 02/09/21 18:00 63 20 02/09/21 15:35 02/09/21 15:00 73 20 02/09/21 14:58 99 H 72 22 22 22 02/09/21 13:07 02/09/21 11:58 59 L 19 02/09/21 08:00 Resp Resp Resp Resp BP Pulse Ox Pulse Ox 02/09/21 18:00 119/68 96 02/09/21 15:35 02/09/21 15:00 109/70 92 02/09/21 14:58 22 22 22 16 86 L 02/09/21 13:07 94 02/09/21 11:58 137/83 94 02/09/21 08:00 Pulse Ox Pulse Ox Pulse Ox Pulse Ox Pulse Ox Pulse Ox 02/09/21 18:00 02/09/21 15:35 02/09/21 15:00 02/09/21 14:58 85 L 86 L 87 L 89 L 85 L 95 02/09/21 13:07 02/09/21 11:58 02/09/21 08:00 PG Care Time/CCT Total # of Minutes Spent Total Time Spent with Patient: Total time spent is greater than 50% in coordination of care (as documented) at patient's floor/unit and/or counseling patient: Coding Level of Care Code 50791 Subseq Hosp Care Lvl 3 Diagnoses Pneumonia due to COVID-19 virus U07.1; J12.82 Hypoxia R09.02 Hypertension I10 Gout M10.9 Hypokalemia E87.6
[2021-02-09] MEDS: REMDESIVIR 100 MG in SODIUM CHLORIDE 0.9% 230 ML IV SCH (19:59)
[2021-02-09] MEDS: SODIUM CHLORIDE 0.9% 10ML FLUSH IV SCH (20:01)
[2021-02-09] MEDS: ENOXAPARIN INJ 40 MG/0.4 ML SYR SQ SCH (20:02)
[2021-02-10] MEDS: AZITHROMYCIN 500 MG in DEXTROSE 5% 250 ML IV SCH (05:46)
[2021-02-10] MEDS: dexAMETHasone 6 MG in SYRINGE 0 ML IV SCH (09:42)
[2021-02-10] MEDS: ZINC SULFATE 220 MG CAPSULE PO SCH (09:42)
[2021-02-10] MEDS: LOSARTAN POTASSIUM 50 MG TAB PO SCH (09:42)
[2021-02-10] MEDS: allopurinoL 300 MG TAB PO SCH (09:42)
[2021-02-10] MEDS: CHOLECALCIFEROL 1,000 UNITS 25 MCG TAB PO SCH (09:42)
[2021-02-10] MEDS: guaiFENesin 600 MG TABCR PO SCH (09:42)
[2021-02-10] MEDS: allopurinoL 100 MG TAB PO SCH (09:43)
--- NOTE | 2021-02-10 13:02 | Communication Note ---
Date of Service: February 10, 2021 Patient was 94-96 on RA while sitting on the edge of the bed. Upon ambulating about 2 minutes in maintained 92-93%. At about three minutes he did go to 89% then dropped to 85% with ambulation however did not sustain this saturation for very long. Wave form was appropriate on monitor. Placement of 2 L with ambulation resulted in saturations of 90-95% for the next 3 minutes. Patient will need 2 L of O2 with ambulation only to maintain oxygen saturations at 89% or greater.
--- NOTE | 2021-02-10 18:46 | Discharge Summary ---
Date of Service February 10, 2021 Admission HPI Per Admitting Provider The patient is a 60-year-old male with a past medical history including gout and hypertension. He notes the development of the above symptoms on January 27. He had a positive COVID-19 test on January 30, was supposed to get a monoclonal antibody treatment on January 31, however, the nurse called in sick that day, and actually received monoclonal antibody treatment on February 03. He has continued to have progression of symptoms as noted above. Significant laboratories: WBC 10.15, hemoglobin 18.2, hematocrit 50.3, potassium 3.3,, glucose 111, AST 58, albumin 2.8. Patient was COVID-19 positive in ED this evening Pulse ox on room air with ambulation is 87% Chest x-ray with bilateral multifocal pneumonia at the bases Principal Diagnosis COVID-19 Pneumonia Discharge Exam PHYSICAL EXAM General Appearance: WDWN in NAD who is A&O x 3 HEENT: Head is normocephalic/atraumatic; Hearing grossly intact; Mucous membranes moist Neck: Supple; Trachea midline; Neg JVD Heart: RRR with no M/G/R Lungs: CTA except for bases - moving more air today compared to yesterdays exam; minimal fine crackles in R base; Respirations unlabored; Neg accessory muscle use Abdomen: Soft, non-tender, non-distended; Positive BS x 4 quadrants Extremities: Neg cyanosis or edema Neurological: Speech clear; Gross motor/sensory function intact; Neg focal neurologic deficits Psychiatric: Appropriate mood/affect Skin: Normal Color; Warm/Dry Discharge Data Allergies Allergy/AdvReac Type Severity Reaction Status Date / Time No Known Allergies Allergy Verified 02/05/21 16:34 Consultations 02/05/21 19:50 ED Decision to Admit Stat Ordered Studies Chest X-Ray 02/05/21 15:45 XR chest 1V portable HISTORY: 60 years-old Male Dyspnea acute shortness of breath COMPARISON: None TECHNIQUE: Portable AP view of the chest FINDINGS: Cardiac silhouette is enlarged. Interstitial coarsening with ill-defined lower lung zone predominant airspace opacities. No pneumothorax or pleural effusion. Bones appear grossly intact. IMPRESSION: Mid to lower lung zone predominant opacities are suggestive of mu ltifocal viral pneumonia. ACT 112: Negative or not required by law. The above report was generated using voice recognition software. It may contain grammatical, syntax or spelling errors. Electronically signed by: Lauri Bolanos M.D. 02/05/2021 3:56 PM Chest X-Ray 02/07/21 12:14 XR chest 1V portable CLINICAL HISTORY: Hypoxia; evaluate for further PNA development?. COMPARISON STUDY: 02/05/2021 TECHNIQUE: 1 view of the chest FINDINGS: Single frontal view of the chest demonstrates the cardiomediastinal silhouette to be within normal limits. Compared to the previous study, patchy interstitial and alveolar opacities are again seen involving both lower lobes which is not significantly changed. There is no evidence for pleural effusion. There is no evidence for vascular congestion. There is no acute osseous pathology. IMPRESSION: No significant interval change in bilateral interstitial and alveolar opacities. ACT 112: Negative or not required by law. Electronically signed by: Efren Campos M.D. 02/07/2021 12:52 PM Hospital Course (1) Pneumonia due to COVID-19 virus: - Symptom onset January 27 with positive test on the ; received monoclonal antibodies on 03 February - Given total Dexamethasone 10 mg IV in ED and continued throughout hos pitalization, plan to Continue Dexamethasone 6 mg daily x 3 more days - Completed Remdesivir - Completed Zithromax 500 mg daily - Lovenox - DVT prophylaxis - Lasix provided intermittently - no need for continuation on D/C - Repeat CXR - no significant interval change in bilateral interstitial and alveolar opacities - 2 Step revealed need to 6 L on ambulation on 02/09 however repeated this with him on 02/10 and ambulated for approx. 10 minutes. He largely remained around 92% but then his 89 and for a brief few seconds went to 85% but rebound quickly. On 2 L no desaturations. Recommending no O2 at rest and 2 L with ambulation however suspect he could be off O2 rather quickly after discharge (2) Hypoxia: - See above - related to COVID (3) Hypertension: - Continue losartan (4) Gout: - Continue allopurinol (5) Hypokalemia: - Monitored and repleted - COVID information provided. As his symptoms started back on January 27 and has been afebrile no specific isolation is required at this point. Total Time Total Time Spent Total Time Spent (In Minutes): Spent greater than 30 minutes preparing patient for discharge. This includes discussion with patient/family, assessment, intervention, medication reconciliation, and coordination of care. Discharge Plan Discharge Items Patient Disposition: Home - Self-Care Reason For Visit: COVID-19 PNEUMONIA WITH HYPOXIA Discharge Diagnosis: COVID-19 Pneumonia Activity: As commented below Lifting: Gradually increase as tolerated Bathing: No limitations Sexual Activity: When tolerated Exercise/Sports: Gradually increase as tolerated Driving/Machine Use: No limitations Weightbearing: Full weightbearing Non-emergency contact: Primary Care Provider Call non-emergency contact if: you have any medication questions, your symptoms worsen and you have a fever Follow-up/Referrals: Darryl Riley M.D. [Primary Care Provider] - (PLEASE CALL YOUR PRIMARY CARE PROVIDER TO SCHEDULE A DISCHARGE FOLLOW-UP APPOINTMENT WITHIN 7-10 DAYS.) Diet: Heart Healthy Addtl Attending Provider Instructions: Pneumonia due to COVID-19 virus: - You were admitted due to low oxygen levels due to COVID. Thankfully you also had the monoclonal antibodies prior to admission which I think could have helped some. - You completed a course of Remdesivir while in the hospital. You also completed Zithromax. We also used a few doses of Lasix to keep your lungs a bit on the drying side while dealing with COVID. - At this time you will continue on Decadron for 3 more days. You had steroids today so you can start this tomorrow. 02/11. - As well, you do not need oxygen when at rest. However with ambulation would recommend 2 L to keep oxygen saturations above 89%. As you fully recover you will likely not need ongoing Oxygen - Please see the handouts on COVID-19 provided with this discharge Home Medications: - Please continue home medications as previously prescribed. We did not change these Pending Studies at Discharge: No Stand-Alone Forms: [facility] [employer], Smoking Cessation Medications and DC Order Prescriptions: Continued allopurinol 100 mg Tablet 100 mg PO DAILY RF: 0 allopurinol 300 mg Tablet 300 mg PO DAILY RF: 0 losartan 100 mg Tablet 50 mg PO DAILY RF: 0 Discharge Orders: Discharge Order (Routine); Ordered 02/10/21 Ordered By: Sherly Hobbs/Other Patient Handouts: Caring for Someone Who Has COVID-19, COVID-19 Home Care Admission Data Admit Date/Time: 02/05/21 20:40 Attending Provider: Sherly Stoddard Admit Provider: Hussain Medellin Primary Care Provider: Darryl Riley Other Providers: Hussain Medellin Other Interventions: Discharge Summary Assessment (RN) Last Done: 02/10/21 12:55 Supervising Physician Co-Signing Physician Notes PA Supervision Note: I personally saw and examined the patient. I verified all dave points and agree with CRYSTAL Kennedy with the following exceptions and/or additions: S-patient feeling very well, on room air at rest needs 2 L with ambulation. No chest pain or shortness of breath. Is eating and drinking well. Feels very ready to go home. O- Vitals reviewed Gen: AAOx3, NAD HEENT: Anicteric sclerae, EOMI CV: RRR no mgr nl S1S2 Pulm: Mild fine crackles at bases bilaterally, otherwise clear Abd: +BS soft NT ND no masses or hernias Ext: No edema, 2+ DP pulses Skin: No rashes, warm/dry Neuro: Full strength throughout A/[id number]-acan-old male here with COVID-19 pneumonia and acute respiratory failure with hypoxia. Much improved. DC to home with 2 L of oxygen via nasal cannula with ambulation. Needs 3 more days of dexamethasone. Follow-up with PCP within 1 to 2 weeks. Coding Level of Care Code D/C DAY MANAGEMENT >30 MINS Diagnoses Pneumonia due to COVID-19 virus U07.1; J12.82 Hypoxia R09.02 Hypertension I10 Gout M10.9 Hypokalemia E87.6
== END 2021-02-10 14:32 | disposition home or self-care (01) | DRG 177 ==
LOC: ED 15:21 → 2W 18:52 → SUATTDRO 20:40 → EDINP 20:40 → 2W 23:06